=== PATIENT | female | born 1985 | race American Indian/Alaskan Native ===

== ENCOUNTER 2021-01-29 10:29 | Emergency (ER) | payer SELFPAY ==
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
== END 2021-01-29 13:43 | disposition home or self-care (01) ==
LOC: ED 10:29
CPT/HCPCS: 99281